=== PATIENT | male | born 1975 | race African-American/Black ===

== ENCOUNTER 2016-08-25 08:04 | Emergency (ER) | payer MEDICAID, OTHER ==
[~2016-08-25] VITALS: Ht 157.5 cm; Wt 67.0 kg
[2016-08-25 09:40] VITALS: BP 156/98
== END 2016-08-25 09:43 | disposition home or self-care (01) ==
LOC: ER 09:06
DX: J02.9 Acute pharyngitis, unspecified (principal); H92.02 Otalgia, left ear; F12.10 Cannabis abuse, uncomplicated; F10.10 Alcohol abuse, uncomplicated; I10 Essential (primary) hypertension
CPT/HCPCS: 99283

== ENCOUNTER 2018-05-27 06:06 | Emergency (ER) | payer SELFPAY ==
[~2018-05-27] VITALS: Ht 160 cm; Wt 68.0 kg
[2018-05-27] MEDS ORDERED: PREDNISONE 20MG TABLET PO STA (08:11)
[2018-05-27] MEDS ORDERED: ALBUTEROL (0.083%) 2.5MG/3ML NEB HHN STA (08:11)
[2018-05-27] MEDS ORDERED: ALBUTEROL (0.083%) 2.5MG/3ML NEB ONE (08:16)
[2018-05-27 08:52] VITALS: BP 137/92
== END 2018-05-27 08:52 | disposition home or self-care (01) ==
LOC: ER 06:06
DX: J45.901 Unspecified asthma with (acute) exacerbation (principal); F12.10 Cannabis abuse, uncomplicated
CPT/HCPCS: 99283; J7512; J7611